=== PATIENT | male | born 1990 | race Caucasian/White ===

== ENCOUNTER 2018-07-05 10:37 | Emergency (ER) | payer OTHER ==
[~2018-07-05] VITALS: Ht 175.3 cm; Wt 86.0 kg
[~2018-07-05 10:37] MED LIST: NO HOME MEDS; ONDA4TAB59 PO; SUCR1ORA2 PO
[2018-07-05 10:42] VITALS: BP 123/55
== END 2018-07-05 11:32 | disposition home or self-care (01) ==
LOC: ER 10:38
DX: M79.661 Pain in right lower leg (principal); R07.89 Other chest pain; J45.909 Unspecified asthma, uncomplicated; K21.9 Gastro-esophageal reflux disease without esophagitis; F12.90 Cannabis use, unspecified, uncomplicated; Z79.899 Other long term (current) drug therapy; V86.56XA Driver of dirt bike or motor/cross bike injured in nontraffic accident, initial encounter; Y93.89 Activity, other specified; Y92.89 Other specified places as the place of occurrence of the external cause; Y99.8 Other external cause status
CPT/HCPCS: 71045; 73590; 99284

== ENCOUNTER 2023-01-13 20:10 | Emergency (ER) | payer MEDICAID ==
[~2023-01-13] VITALS: Ht 177.8 cm; Wt 94.5 kg
[2023-01-13 20:14] VITALS: TEMP 98.4
[2023-01-13] MEDS ORDERED: methylPREDNISolone sod succ 125mg/2ml vial IV ONE (20:40)
[2023-01-13] MEDS ORDERED: famotidine/PF 10 mg/ml inj IV ONE (20:55)
[2023-01-13] MEDS ORDERED: epiNEPHrine 1 mg/ml inj SQ ONE (20:55)
[2023-01-13] MEDS ORDERED: diphenhydrAMINE 50 mg/ml inj IV ONE (20:55)
[2023-01-13] MEDS ORDERED: normal saline 1000ML IV soln IVB ONE (21:05)
[2023-01-13] MEDS ORDERED: EPIN0.154 IM (22:32)
[2023-01-13] MEDS ORDERED: FAMO-128 PO (22:32)
[2023-01-13] MEDS ORDERED: DEC4T PO (22:32)
[2023-01-13 22:58] VITALS: BP 128/75; PULSE 62; RESP 17; O2SAT 96
== END 2023-01-13 22:59 | disposition home or self-care (01) ==
LOC: ER 20:11
DX: T63.441A Toxic effect of venom of bees, accidental (unintentional), initial encounter (principal); T78.2XXA Anaphylactic shock, unspecified, initial encounter; X58.XXXA Exposure to other specified factors, initial encounter
CPT/HCPCS: 96361; 96372; 96374; 96375; 99291; J0171; J1200; J2930; J3490; J7030

== ENCOUNTER 2023-06-21 20:29 | Emergency (ER) | payer MEDICAID ==
[~2023-06-21] VITALS: Ht 177.8 cm; Wt 91.8 kg
[~2023-06-21 20:29] MED LIST changes: +EPIN0.154 IM; +FAMO-128 PO
[2023-06-21 21:48] LABS: BASOPHILS % (AUTO) 0.6 % (0-1); EOSINOPHILS # (AUTO) 0.1 X10'3 (0-0.9); EOSINOPHILS % (AUTO) 2.5 % (0-6); HEMATOCRIT 42.2 % (42.0-52.0); HEMOGLOBIN 14.7 g/dl (14.0-17.9); LYMPHOCYTES # (AUTO) 1.5 X10'3 (1.1-4.8); LYMPHOCYTES % (AUTO) 29.6 % (21-51); MEAN CORPUSCULAR HEMOGLOBIN 31.3 PG (27.0-31.0); MEAN CORPUSCULAR HGB CONC 34.7 g/dL (33.0-36.5); MEAN CORPUSCULAR VOLUME 90.3 FL (78-98); MEAN PLATELET VOLUME 8.1 FL (7.4-10.4); MONOCYTES # (AUTO) 0.6 X10'3 (0-0.9); MONOCYTES % (AUTO) 11.7 % (2-12); NEUTROPHILS # (AUTO) 2.8 X10'3 (1.8-7.7); NEUTROPHILS % (AUTO) 55.6 % (42-75); PLATELET COUNT 254 X10'3 (140-440); RED BLOOD COUNT 4.67 X10'6 (4.70-6.10); RED CELL DISTRIBUTION WIDTH 12.8 % (11.5-14.5); WHITE BLOOD COUNT 5.1 X10'3 (4.5-11.0)
[2023-06-21 21:56] LABS: APTT 27 SECONDS (22-32); PROTHROMBIN TIME 10.7 SECONDS (9.0-12.0)
[2023-06-21 21:59] LABS: ALANINE AMINOTRANSFERASE 43 U/L (12-78); ALBUMIN 3.5 G/DL (3.4-5.0); ALBUMIN/GLOBULIN RATIO 1.1 (1.1-1.5); ALKALINE PHOSPHATASE 84 IU/L (46-116); ANION GAP 8 (8-16); ASPARTATE AMINO TRANSFERASE 21 U/L (10-37); BILIRUBIN,TOTAL 0.3 MG/DL (0.1-1.0); BLOOD UREA NITROGEN 12 MG/DL (7-18); BUN/CREATININE RATIO 11.3 (10.0-20.0); C-REACTIVE PROTEIN 1.58 MG/DL (0.0-0.5); CALCIUM 8.1 MG/DL (8.5-10.1); CHLORIDE 108 MMOL/L (99-107); CREATININE 1.06 MG/DL (0.60-1.10); GLUCOSE 97 MG/DL (70-104); LIPASE 75 U/L (16-77); POTASSIUM 3.7 MMOL/L (3.5-5.1); SODIUM 143 MMOL/L (135-145); TOTAL CARBON DIOXIDE 26.7 MMOL/L (24-32); TOTAL PROTEIN 6.6 G/DL (6.4-8.2); eGFR 81 ML/MIN
[2023-06-21] MEDS ORDERED: iohexol 300mg/ml 100ml inj. ONE (22:02)
[2023-06-21] MEDS: dicyclomine 10 MG capsule PO ONE (22:08)
[2023-06-21] MEDS: HYDROcodone/acetaminophen 5mg/325mg tablet PO ONE (22:08)
[2023-06-21] MEDS: ondansetron 4mg rapidly disintigrating tab PO ONE (22:08)
[2023-06-21] MEDS: mag hydrox/Alum hydrox/simeth 30ml oral suspension PO ONE (23:13)
[2023-06-21] MEDS: LIDOcaine Viscous 15ml cup MM ONE (23:17)
[2023-06-21] MEDS: pantoprazole 40mg Tablet.DR PO SCH (23:17)
[2023-06-21 23:23] LABS: BILIRUBIN,URINE NEGATIVE (Neg); CLARITY,URINE CLEAR (Clear); COLOR,URINE YELLOW (Yellow); GLUCOSE, URINE NEGATIVE (Neg); KETONES,URINE NEGATIVE (Neg); LEUKOCYTE ESTERASE ,URINE NEGATIVE (Neg); NITRITES, URINE NEGATIVE (Neg); OCCULT BLOOD,URINE NEGATIVE (Neg); PH,URINE 6.5 (4.8-8.0); PROTEIN,URINE NEGATIVE (Neg); UROBILINOGEN,URINE 0.2 E.U/dL (0.2-1.0)
[2023-06-21 23:26] LABS: UA COLLECTION TYPE NON-SPECIFIED
[2023-06-21] MEDS ORDERED: PANT40SU2 PO (23:35)
[2023-06-22 00:06] VITALS: BP 118/74; PULSE 53; RESP 18; TEMP 97.9; O2SAT 98
[2023-06-22 00:17] LABS: URINE AMPHETAMINE SCREEN NEGATIVE (Neg); URINE BARBITUATE SCREEN NEGATIVE (Neg); URINE BENZODIAZEPINES SCREEN NEGATIVE (Neg); URINE CANNABINOID SCREEN NEGATIVE (Neg); URINE COCAINE SCREEN NEGATIVE (Neg); URINE METHADONE SCREEN NEGATIVE (Neg); URINE OPIATE SCREEN POSITIVE (Neg); URINE PHENCYCLIDINE SCREEN NEGATIVE (Neg)
== END 2023-06-22 00:08 | disposition home or self-care (01) ==
LOC: ER 20:30
DX: K29.00 Acute gastritis without bleeding (principal); J45.909 Unspecified asthma, uncomplicated; K21.9 Gastro-esophageal reflux disease without esophagitis; F12.90 Cannabis use, unspecified, uncomplicated; Z91.030 Bee allergy status; Z79.899 Other long term (current) drug therapy
CPT/HCPCS: 36415; 71260; 74177; 80053; 80305; 81003; 83605; 83690; 85025; 85610; 85651; 85730; 86140; 86885; 86900; 86901; 87040; 99285; J3490; Q9967

== ENCOUNTER 2023-08-25 12:34 | Emergency (ER) | payer MEDICAID ==
[~2023-08-25] VITALS: Ht 180.3 cm; Wt 96.2 kg
[~2023-08-25 12:34] MED LIST changes: +PANT40SU2 PO
[2023-08-25 13:41] VITALS: BP 118/74; PULSE 77; RESP 14; TEMP 98; O2SAT 99
== END 2023-08-25 13:42 | disposition home or self-care (01) ==
LOC: ER 12:34
DX: S62.396A Other fracture of fifth metacarpal bone, right hand, initial encounter for closed fracture (principal); K21.9 Gastro-esophageal reflux disease without esophagitis; J45.909 Unspecified asthma, uncomplicated; F41.9 Anxiety disorder, unspecified; F12.90 Cannabis use, unspecified, uncomplicated; Z88.8 Allergy status to other drugs, medicaments and biological substances; Z79.899 Other long term (current) drug therapy; W18.39XA Other fall on same level, initial encounter; Y93.89 Activity, other specified; Y92.89 Other specified places as the place of occurrence of the external cause; Y99.8 Other external cause status
CPT/HCPCS: 29125; 73130; 99283; A6446; A6449